=== PATIENT | male | born 1990 | race Caucasian/White ===

== ENCOUNTER 2018-01-02 13:02 | Emergency (ER) | payer OTHER ==
[~2018-01-02] VITALS: Ht 182.9 cm; Wt 100.0 kg
[2018-01-02 13:22] VITALS: BP 163/93
[2018-01-02 14:16] LABS: BASOPHILS # (AUTO) 0.02 x10^3/uL (0-0.1); BASOPHILS % (AUTO) 0 % (0-1); EOSINOPHILS # (AUTO) 0.02 x10^3/uL (0-0.4); EOSINOPHILS % (AUTO) 0 % (1-7); LYMPHOCYTES % (AUTO) 21 % (22-44); MD NO; MEAN CORPUSCULAR HEMOGLOBIN 28.2 pg (27.5-34.5); MEAN CORPUSCULAR HGB CONC 33.5 g/dL (33.2-36.2); MEAN CORPUSCULAR VOLUME 84.3 fL (81-97); MEAN PLATELET VOLUME 8.9 fL (7.4-10.4); MONOCYTES # (AUTO) 0.42 x10^3/uL (0.2-0.8); MONOCYTES % (AUTO) 7 % (2-9); NEUTROPHILS # (AUTO) 4.16 x10^3/uL (1.8-6.8); NEUTROPHILS % (AUTO) 72 % (42-75); PLATELET COUNT 200 x10^3/uL (130-400); RED BLOOD COUNT 5.41 x10^6/uL (4.38-5.82); RED CELL DISTRIBUTION WIDTH 13.3 % (9.4-14.8)
[2018-01-02 14:27] LABS: ALBUMIN 4.4 g/dL (3.4-5.0); ANION GAP 4 mmol/L (5-15); CALCIUM 9.2 mg/dL (8.5-10.1); CHLORIDE 107 mmol/L (98-107)
[2018-01-02 14:31] LABS: CREATININE 0.81 mg/dL (0.7-1.3); TROPONIN I < 0.015 ng/mL (0.000-0.045)
== END 2018-01-02 16:00 | disposition home or self-care (01) ==
LOC: ED 15:54
DX: R00.2 Palpitations (principal)
CPT/HCPCS: 36415; 80048; 82040; 84484; 85025; 93005; 99285

== ENCOUNTER → 2019-08-13 | Outpatient (CLI) | payer OTHER | END | disposition home or self-care (01) | LOC: CFH 09:45 | PROVIDERS: ATTEND Internal Medicine Cardiovascular Disease | DX: R07.89 Other chest pain (principal) | CPT/HCPCS: 93306 ==